=== PATIENT | male | born 1965 | race Hispanic/Latino ===

== ENCOUNTER 2025-09-30 16:08 | Inpatient (IN) | payer OTHER, SELFPAY ==
[2025-09-30 16:57] LABS: #Basophils Less than 0.03 10x3/uL (0.0-0.2); #Eosinophils Less than 0.03 10x3/uL (0.0-0.5); #Monocytes 1.32 10x3/uL (0.0-1.1); #Neutrophils 18.63 10x3/uL (1.5-8.4); %Basophils 0.1 % (0.0-2.0); %Eosinophils 0.0 % (0.0-6.0); %Lymphocytes 2.8 % (18.0-47.0); %Monocytes 6.4 % (0.0-10.0); %Neutrophils 89.9 % (40.0-75.0); Hematocrit 32.5 % (38.8-50.0); Hemoglobin 10.6 g/dL (13.5-17.5); Mean Corpuscular Hemoglobin 25.5 pg (27.0-33.0); Mean Corpuscular Volume 78.1 fL (81.2-95.1); Platelet Count 204 10x3/uL (150-450); Red Blood Cell (RBC) Count 4.16 10x6/uL (4.32-5.72); White Blood Cell (WBC) Count 20.71 10x3/uL (3.5-10.5)
[2025-09-30 17:23] LABS: ALT (SGPT) 16 U/L (Less than 45); AST (SGOT) 12 U/L (11-34); Albumin 3.1 g/dL (3.1-4.5); Alkaline Phosphatase 72 U/L (40-110); Anion Gap 13 mmol/L (10-20); BUN (Urea Nitrogen) 22 mg/dL (8.4-25.7); Bilirubin, Total 1.5 mg/dL (0.3-1.2); Calc. Creatinine Clearance 0 mL/min (70-130); Calcium 8.0 mg/dL (7.8-10.44); Carbon Dioxide 20 mmol/L (22-29); Chloride 105 mmol/L (98-107); Globulin 3.1 g/dL (2.4-3.5); Glucose 138 mg/dL (70-105); Potassium 4.0 mmol/L (3.5-5.1); Sodium 134 mmol/L (136-145)
[2025-09-30 17:27] LABS: Troponin I Less than 0.010 ng/mL (< 0.028)
[2025-09-30] MEDS ORDERED: cefTRIAXone (ROCEPHIN) 2 GM VIAL ONE (17:42)
[2025-09-30] MEDS ORDERED: Melatonin 3 MG TAB PO PRN (20:09)
[2025-09-30] MEDS ORDERED: Acetaminophen 325 MG TAB PO PRN (20:09)
[2025-09-30] MEDS ORDERED: Ondansetron PF 4 MG/2 ML Vial IVP PRN (20:09)
[2025-09-30 20:32] LABS: Glucose, Urine (Dipstick) Normal (Negative); Leukocyte 500 (Negative); Protein, Urine (Dipstick) 30 mg/dl (Neg-Trace); Specific Gravity, Urine 1.010 (1.005-1.030)
[2025-09-30] MEDS ORDERED: Dextrose 50% Abboject 50 ML SYRINGE SLOW IVP PRN (20:35)
[2025-09-30] MEDS ORDERED: Glucagon 1 MG/ML KIT IM PRN (20:35)
[2025-09-30 20:50] VITALS: BMI 64.8
[2025-09-30 20:54] LABS: Bacteria/HPF 3+ HPF (None Seen); WBC/HPF 21-50 HPF (0-3)
[2025-09-30 20:55] LABS: Mucous/LPF 2+ LPF (<2+)
[2025-09-30] MEDS: Heparin 5,000 UNITS/ML VIAL SC SCH (21:09)
[2025-09-30] MEDS: Vancomycin 1.5 GRAM/300 ML BAG 1.5 GM in Premix 1 BAG IVPB SCH (22:01)
[2025-10-01 07:37] LABS: #Basophils Less than 0.03 10x3/uL (0.0-0.2); #Eosinophils 0.05 10x3/uL (0.0-0.5); #Monocytes 0.89 10x3/uL (0.0-1.1); #Neutrophils 11.49 10x3/uL (1.5-8.4); %Basophils 0.1 % (0.0-2.0); %Eosinophils 0.4 % (0.0-6.0); %Lymphocytes 6.8 % (18.0-47.0); %Monocytes 6.6 % (0.0-10.0); %Neutrophils 85.5 % (40.0-75.0); Hematocrit 31.7 % (38.8-50.0); Hemoglobin 10.0 g/dL (13.5-17.5); Mean Corpuscular Hemoglobin 25.6 pg (27.0-33.0); Mean Corpuscular Volume 81.3 fL (81.2-95.1); Platelet Count 153 10x3/uL (150-450); Red Blood Cell (RBC) Count 3.90 10x6/uL (4.32-5.72); White Blood Cell (WBC) Count 13.44 10x3/uL (3.5-10.5)
[2025-10-01 08:08] LABS: Vancomycin, Random 13.0 ug/mL (See Comment)
[2025-10-01 08:14] LABS: Anion Gap 11 mmol/L (10-20); BUN (Urea Nitrogen) 19 mg/dL (8.4-25.7); Calc. Creatinine Clearance 211 mL/min (70-130); Calcium 7.6 mg/dL (7.8-10.44); Carbon Dioxide 20 mmol/L (22-29); Chloride 109 mmol/L (98-107); Glucose 115 mg/dL (70-105); Potassium 4.1 mmol/L (3.5-5.1); Sodium 136 mmol/L (136-145)
[2025-10-01] MEDS ORDERED: VANCOMYCIN 1.75 GM/350 ML BAG 1.75 GM in Premix 1 BAG IVPB SCH (09:00)
[2025-10-01] MEDS: cefTRIAXone\\ROCEPHIN 2 GM in Sodium Chloride 0.9% 100 ML IVPB SCH (10:09)
[2025-10-01] MEDS ORDERED: Enoxaparin 40 MG (0.4 mL) SYRINGE SC SCH (21:00)
[2025-10-01] MEDS: Enoxaparin 60 MG (0.6 mL) SYRINGE SC SCH (21:24)
[2025-10-02 06:22] LABS: #Basophils Less than 0.03 10x3/uL (0.0-0.2); #Eosinophils 0.13 10x3/uL (0.0-0.5); #Monocytes 0.53 10x3/uL (0.0-1.1); #Neutrophils 5.27 10x3/uL (1.5-8.4); %Basophils 0.1 % (0.0-2.0); %Eosinophils 1.8 % (0.0-6.0); %Lymphocytes 18.2 % (18.0-47.0); %Monocytes 7.3 % (0.0-10.0); %Neutrophils 72.3 % (40.0-75.0); Hematocrit 32.9 % (38.8-50.0); Hemoglobin 10.6 g/dL (13.5-17.5); Mean Corpuscular Hemoglobin 25.9 pg (27.0-33.0); Mean Corpuscular Volume 80.4 fL (81.2-95.1); Platelet Count 174 10x3/uL (150-450); Red Blood Cell (RBC) Count 4.09 10x6/uL (4.32-5.72); White Blood Cell (WBC) Count 7.29 10x3/uL (3.5-10.5)
[2025-10-02 06:42] LABS: Anion Gap 11 mmol/L (10-20); BUN (Urea Nitrogen) 16 mg/dL (8.4-25.7); Calc. Creatinine Clearance 223 mL/min (70-130); Calcium 8.3 mg/dL (7.8-10.44); Carbon Dioxide 21 mmol/L (22-29); Chloride 110 mmol/L (98-107); Glucose 119 mg/dL (70-105); Potassium 4.2 mmol/L (3.5-5.1); Sodium 138 mmol/L (136-145)
[2025-10-03 05:20] LABS: #Basophils Less than 0.03 10x3/uL (0.0-0.2); #Eosinophils 0.15 10x3/uL (0.0-0.5); #Monocytes 0.56 10x3/uL (0.0-1.1); #Neutrophils 4.58 10x3/uL (1.5-8.4); %Basophils 0.1 % (0.0-2.0); %Eosinophils 2.2 % (0.0-6.0); %Lymphocytes 23.1 % (18.0-47.0); %Monocytes 8.1 % (0.0-10.0); %Neutrophils 66.2 % (40.0-75.0); Hematocrit 32.8 % (38.8-50.0); Hemoglobin 10.2 g/dL (13.5-17.5); Mean Corpuscular Hemoglobin 25.2 pg (27.0-33.0); Mean Corpuscular Volume 81.0 fL (81.2-95.1); Platelet Count 183 10x3/uL (150-450); Red Blood Cell (RBC) Count 4.05 10x6/uL (4.32-5.72); White Blood Cell (WBC) Count 6.92 10x3/uL (3.5-10.5)
[2025-10-03 05:36] LABS: Anion Gap 11 mmol/L (10-20); BUN (Urea Nitrogen) 16 mg/dL (8.4-25.7); Calc. Creatinine Clearance 242 mL/min (70-130); Calcium 8.5 mg/dL (7.8-10.44); Carbon Dioxide 23 mmol/L (22-29); Chloride 107 mmol/L (98-107); Glucose 116 mg/dL (70-105); Potassium 4.5 mmol/L (3.5-5.1); Sodium 136 mmol/L (136-145)
[2025-10-03 09:09] VITALS: TEMP 98
[2025-10-03 11:02] LABS: Glucose, Urine (Dipstick) Normal (Negative); Leukocyte 25 (Negative); Protein, Urine (Dipstick) Negative (Neg-Trace); Specific Gravity, Urine 1.015 (1.005-1.030)
[2025-10-03 11:13] LABS: Bacteria/HPF Rare-Few HPF (None Seen); CAUTI Indications for Culture Fever or rigors; RBC/HPF 0-3 HPF (0-3); Urine Culture Reflex No No
[2025-10-03 12:15] VITALS: BP 145/76
== END 2025-10-03 15:54 | disposition home or self-care (01) | DRG 872 ==
LOC: CSHERS 16:08 → CSHTELE 18:25
PROVIDERS: ADMIT Family Medicine; ATTEND Hospitalist
DX: A41.9 Sepsis, unspecified organism (principal); N17.9 Acute kidney failure, unspecified; N39.0 Urinary tract infection, site not specified; I10 Essential (primary) hypertension; E78.5 Hyperlipidemia, unspecified; E11.9 Type 2 diabetes mellitus without complications; E66.9 Obesity, unspecified; Z79.899 Other long term (current) drug therapy; N35.919 Unspecified urethral stricture, male, unspecified site
CPT/HCPCS: 36415; 36416; 71045; 74176; 80048; 80053; 80202; 81001; 83605; 84484; 85025; 85379; 87040; 93005; 96365; 96375; J0692; J0696; J1644; J1650; J3373; J7030